=== PATIENT | male | born 1990 | race African-American/Black ===

== ENCOUNTER 2018-04-05 18:31 | Emergency (ER) | payer SELFPAY ==
[~2018-04-05] VITALS: Ht 188 cm; Wt 111.1 kg
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
--- NOTE | 2018-04-05 20:37 | NUR ---
Patient discharged to home in stable conditon WALKED OUT OF ER WITH NO DISTRESS NOTED. Written and verbal after care instructions given. Patient verbalizes understanding of instructions.
[2018-04-05 20:40] VITALS: BP 138/82
== END 2018-04-05 20:40 | disposition home or self-care (01) ==
LOC: ER 18:31
DX: S06.0X0A Concussion without loss of consciousness, initial encounter (principal); S16.1XXA Strain of muscle, fascia and tendon at neck level, initial encounter; Z88.5 Allergy status to narcotic agent; V43.52XA Car driver injured in collision with other type car in traffic accident, initial encounter; Y93.89 Activity, other specified; Y92.410 Unspecified street and highway as the place of occurrence of the external cause; Y99.8 Other external cause status
CPT/HCPCS: 70450; 72125; A4663